=== PATIENT | male | born 1960 | race Caucasian/White ===

== ENCOUNTER 2025-01-13 12:16 | Outpatient (REF) | payer MEDICARE, SELFPAY ==
[2025-01-13 12:52] LABS: Abs Immature Grans 0.02 10^3/uL (0.0-0.06); Absolute Basophil Count 0.12 10^3/uL (0.0-0.2); Absolute Eosinophil Count 0.67 10^3/uL (0.0-0.7); Absolute Lymphocyte Count 2.59 10^3/uL (1.2-3.4); Absolute Monocyte Count 0.95 10^3/uL (0.1-0.8); Absolute Neutrophil Count 8.09 10^3/uL (1.2-6.7); Eosinophils % 5.4 %; HCT 40.2 % (40.0-50.0); Immature Grans % 0.2 %; Lymphocytes % 20.8 %; MCH 26.9 pg (27.0-33.0); MCHC 32.3 % (32.0-36.0); MCV 83 fL (80-95); MPV 8.9 fL (8.0-11.0); Monocytes % 7.6 %; Platelet Count 573 10^3/uL (130-400); RBC 4.83 10^6/uL (4.36-5.78); RDW 18.6 % (11.8-14.1); RDW-SD 55.3 fL; WBC 12.44 10^3/uL (4.4-10.8)
[2025-01-13 13:11] LABS: ALT 22 U/L (16-63); AST 26 U/L (15-37); Albumin 3.4 g/dL (3.4-5.0); Alkaline Phosphatase 113 U/L (46-116); Anion Gap 11.7 mmol/L (3-11); BUN 22 mg/dL (7-18); Bilirubin, Total 0.3 mg/dL (0.2-1.0); CO2 26.3 mmol/L (21.0-32.0); CREATININE 0.7 mg/dL (0.70-1.30); Calcium 10.3 mg/dL (8.5-10.1); Chloride 95 mmol/L (98-107); Estimated GFR 102.25 (mL/min/1.73m2); FREE T4 0.71 ng/dL (0.76-1.46); Glucose 70 mg/dL (74-106); Potassium 3.6 mmol/L (3.5-5.1); Sodium 133 mmol/L (136-145); TSH 2.89 uIU/mL (0.36-3.74); Total Protein 8.2 g/dL (6.4-8.2)
== END 2025-01-13 12:17 | disposition home or self-care (01) ==
LOC: LBN 12:16
PROVIDERS: Visit Provider Internal Medicine Hematology
DX: C02.9 Malignant neoplasm of tongue, unspecified (principal)
CPT/HCPCS: 80053; 84439; 84443; 85025

== ENCOUNTER 2025-02-03 14:06 | Outpatient (REF) | payer MEDICARE, SELFPAY ==
[2025-02-03 11:39] LABS: Abs Immature Grans 0.03 10^3/uL (0.0-0.06); HCT 44.2 % (40.0-50.0); HGB 14.4 g/dL (13.5-17.5); Immature Grans % 0.3 %; MCH 27.2 pg (27.0-33.0); MCHC 32.6 % (32.0-36.0); MCV 84 fL (80-95); MPV 8.9 fL (8.0-11.0); Platelet Count 547 10^3/uL (130-400); RBC 5.29 10^6/uL (4.36-5.78); RDW 18.6 % (11.8-14.1); RDW-SD 56.3 fL; WBC 9.11 10^3/uL (4.4-10.8)
[2025-02-03 12:08] LABS: ALT 121 U/L (16-63); AST 121 U/L (15-37); Albumin 3.4 g/dL (3.4-5.0); Alkaline Phosphatase 997 U/L (46-116); Anion Gap 11.9 mmol/L (3-11); BUN 24 mg/dL (7-18); Bilirubin, Total 0.6 mg/dL (0.2-1.0); CO2 27.1 mmol/L (21.0-32.0); Calcium 10.0 mg/dL (8.5-10.1); Chloride 95 mmol/L (98-107); Estimated GFR 102.25 (mL/min/1.73m2); Glucose 69 mg/dL (74-106); Potassium 4.0 mmol/L (3.5-5.1); Sodium 134 mmol/L (136-145); TSH 1.99 uIU/mL (0.36-3.74); Total Protein 8.7 g/dL (6.4-8.2)
== END 2025-02-03 14:07 | disposition home or self-care (01) ==
LOC: LBN 14:06
PROVIDERS: Visit Provider Internal Medicine Hematology
DX: C02.9 Malignant neoplasm of tongue, unspecified (principal)
CPT/HCPCS: 80053; 84439; 84443; 85025

== ENCOUNTER 2025-02-17 03:02 | Outpatient (CLI) | payer MEDICARE, SELFPAY ==
[2025-02-17 10:36] LABS: Abs Immature Grans 0.15 10^3/uL (0.0-0.06); HCT 40.5 % (40.0-50.0); HGB 13.0 g/dL (13.5-17.5); Immature Grans % 0.6 %; MCH 26.9 pg (27.0-33.0); MCHC 32.1 % (32.0-36.0); MCV 84 fL (80-95); MPV 8.6 fL (8.0-11.0); Platelet Count 438 10^3/uL (130-400); RBC 4.84 10^6/uL (4.36-5.78); RDW 18.1 % (11.8-14.1); RDW-SD 55.2 fL; WBC 24.80 10^3/uL (4.4-10.8)
[2025-02-17 10:50] LABS: RBC Morphology Normal
[2025-02-17 11:12] LABS: ALT 67 U/L (16-63); AST 29 U/L (15-37); Albumin 3.0 g/dL (3.4-5.0); Alkaline Phosphatase 264 U/L (46-116); Anion Gap 13.6 mmol/L (3-11); BUN 34 mg/dL (7-18); Bilirubin, Total 0.2 mg/dL (0.2-1.0); CO2 22.4 mmol/L (21.0-32.0); Calcium 9.3 mg/dL (8.5-10.1); Chloride 99 mmol/L (98-107); Estimated GFR 94.78 (mL/min/1.73m2); Glucose 90 mg/dL (74-106); Potassium 4.7 mmol/L (3.5-5.1); Sodium 135 mmol/L (136-145); TSH 1.62 uIU/mL (0.36-3.74); Total Protein 7.5 g/dL (6.4-8.2)
== END 2025-02-17 03:03 | disposition home or self-care (01) ==
LOC: LBO 03:02
PROVIDERS: Visit Provider Internal Medicine Hematology
DX: C02.9 Malignant neoplasm of tongue, unspecified (principal)
CPT/HCPCS: 36415; 80053; 84439; 84443; 85025

== ENCOUNTER 2025-04-28 03:24 | Outpatient (CLI) | payer MEDICARE, SELFPAY ==
[2025-04-28 12:06] LABS: Abs Immature Grans 0.06 10^3/uL (0.0-0.06); HCT 38.2 % (40.0-50.0); HGB 12.4 g/dL (13.5-17.5); Immature Grans % 0.4 %; MCH 25.6 pg (27.0-33.0); MCHC 32.5 % (32.0-36.0); MCV 79 fL (80-95); MPV 8.9 fL (8.0-11.0); Platelet Count 452 10^3/uL (130-400); RBC 4.85 10^6/uL (4.36-5.78); RDW 17.7 % (11.8-14.1); RDW-SD 49.2 fL; WBC 14.35 10^3/uL (4.4-10.8)
[2025-04-28 13:04] LABS: ALT 19 U/L (16-63); AST 17 U/L (15-37); Albumin 3.0 g/dL (3.4-5.0); Alkaline Phosphatase 156 U/L (46-116); Anion Gap 9.9 mmol/L (3-11); BUN 38 mg/dL (7-18); Bilirubin, Total 0.4 mg/dL (0.2-1.0); CO2 25.1 mmol/L (21.0-32.0); Calcium 10.8 mg/dL (8.5-10.1); Chloride 104 mmol/L (98-107); Estimated GFR 74.50 (mL/min/1.73m2); Glucose 108 mg/dL (74-106); Potassium 4.3 mmol/L (3.5-5.1); Sodium 139 mmol/L (136-145); TSH 2.32 uIU/mL (0.36-3.74); Total Protein 7.7 g/dL (6.4-8.2)
== END 2025-04-28 03:25 | disposition home or self-care (01) ==
LOC: LBO 03:24
PROVIDERS: Visit Provider Internal Medicine Hematology
DX: C02.9 Malignant neoplasm of tongue, unspecified (principal)
CPT/HCPCS: 36415; 80053; 84439; 84443; 85025